=== PATIENT | female | born 2000 | race Caucasian/White ===

== ENCOUNTER → 2024-04-20 16:53 | Outpatient (REF) | payer OTHER, SELFPAY | LOC: RAD 16:53 | PROVIDERS: ATTENDING PHYSICIAN Nurse Practitioner Family; FAMILY PHYSICIAN Family Medicine | DX: R14.0 Abdominal distension (gaseous) (principal) | CPT/HCPCS: 76700; 76830; 76856 ==

== ENCOUNTER → 2024-07-16 06:22 | Day surgery (SDC) | payer BC, SELFPAY | LOC: GI 06:22 | PROVIDERS: ATTENDING PHYSICIAN Internal Medicine Gastroenterology | DX: K62.89 Other specified diseases of anus and rectum (principal); R19.4 Change in bowel habit; R14.0 Abdominal distension (gaseous) | CPT/HCPCS: 45378; 43239; 88305; 88342 ==

== ENCOUNTER 2025-01-16 06:22 | Outpatient (RCR) | payer BC, SELFPAY | END 2025-01-16 23:59 | disposition home or self-care (01) | LOC: RPT 06:22 | PROVIDERS: ATTENDING PHYSICIAN Internal Medicine Gastroenterology | DX: M62.89 Other specified disorders of muscle (principal); K59.00 Constipation, unspecified; M41.25 Other idiopathic scoliosis, thoracolumbar region; Z73.6 Limitation of activities due to disability | CPT/HCPCS: 97162; 97530 ==

== ENCOUNTER 2025-02-18 17:05 | Outpatient (RCR) | payer BC, SELFPAY | END 2025-02-18 23:59 | disposition home or self-care (01) | LOC: RPT 17:05 | PROVIDERS: ATTENDING PHYSICIAN Internal Medicine Gastroenterology | DX: M62.89 Other specified disorders of muscle (principal); K59.00 Constipation, unspecified; M41.25 Other idiopathic scoliosis, thoracolumbar region; Z73.6 Limitation of activities due to disability | CPT/HCPCS: 97110; 97140; 97530 ==

== ENCOUNTER 2025-03-20 17:15 | Outpatient (RCR) | payer BC, SELFPAY | END 2025-03-20 23:59 | disposition home or self-care (01) | LOC: RPT 17:15 | PROVIDERS: ATTENDING PHYSICIAN Internal Medicine Gastroenterology | DX: M62.89 Other specified disorders of muscle (principal); K59.00 Constipation, unspecified; M41.25 Other idiopathic scoliosis, thoracolumbar region; Z73.6 Limitation of activities due to disability | CPT/HCPCS: 97014; 97110; 97112; 97140; 97530 ==

== ENCOUNTER 2025-04-08 17:04 | Outpatient (RCR) | payer BC, SELFPAY | END 2025-04-08 23:59 | disposition home or self-care (01) | LOC: RPT 17:04 | PROVIDERS: ATTENDING PHYSICIAN Internal Medicine Gastroenterology | DX: M62.89 Other specified disorders of muscle (principal); K59.00 Constipation, unspecified; M41.25 Other idiopathic scoliosis, thoracolumbar region; Z73.6 Limitation of activities due to disability | CPT/HCPCS: 97014; 97110; 97112; 97140; 97530 ==

== ENCOUNTER 2025-05-13 16:58 | Outpatient (RCR) | payer BC, SELFPAY | END 2025-05-13 23:59 | disposition home or self-care (01) | LOC: RPT 16:58 | PROVIDERS: ATTENDING PHYSICIAN Internal Medicine Gastroenterology | DX: M62.89 Other specified disorders of muscle (principal); K59.00 Constipation, unspecified; M41.25 Other idiopathic scoliosis, thoracolumbar region; Z73.6 Limitation of activities due to disability | CPT/HCPCS: 97014; 97110; 97112; 97140; 97530 ==

== ENCOUNTER 2025-06-19 16:54 | Outpatient (RCR) | payer BC, SELFPAY | END 2025-06-19 23:59 | disposition home or self-care (01) | LOC: RPT 16:54 | PROVIDERS: ATTENDING PHYSICIAN Internal Medicine Gastroenterology | DX: M62.89 Other specified disorders of muscle (principal); K59.00 Constipation, unspecified; M41.25 Other idiopathic scoliosis, thoracolumbar region; Z73.6 Limitation of activities due to disability | CPT/HCPCS: 97140; 97162; 97530 ==

== ENCOUNTER 2025-08-12 09:17 | Outpatient (RCR) | payer BC, SELFPAY | END 2025-08-12 23:59 | disposition home or self-care (01) | LOC: RPT 09:17 | PROVIDERS: ATTENDING PHYSICIAN Internal Medicine Gastroenterology | DX: M62.89 Other specified disorders of muscle (principal); K59.00 Constipation, unspecified; M41.25 Other idiopathic scoliosis, thoracolumbar region; Z73.6 Limitation of activities due to disability | CPT/HCPCS: 97014; 97110; 97112 ==

== ENCOUNTER → 2025-10-23 10:18 | Outpatient (REF) | payer BC, SELFPAY | LOC: HWRAD 10:18 | PROVIDERS: FAMILY PHYSICIAN Nurse Practitioner Family | DX: R10.20 Pelvic and perineal pain unspecified side (principal) | CPT/HCPCS: 76830; 76856 ==